=== PATIENT | male | born 1960 | race Two or more races ===

== ENCOUNTER → 2016-12-18 | Outpatient (CLI) | payer OTHER | END | disposition home or self-care (01) | LOC: CFH 09:40 | PROVIDERS: ATTEND Family Medicine | DX: M25.511 Pain in right shoulder (principal); G89.29 Other chronic pain ==

== ENCOUNTER 2020-07-29 22:31 | Emergency (ER) | payer MEDICARE, OTHER ==
[~2020-07-29] VITALS: Ht 170.2 cm; Wt 120.0 kg
--- NOTE | 2020-07-29 23:03 | NUR ---
patient objectively acts anxious. states he has checked his bp 20 times today and read on google that anything above 140 is very bad. MD at bedside now educating patient about this. in NAD. VS remain stable on RA. will continue to monitor. states CP comes and goes but is now staying constant.
[2020-07-29] MEDS ORDERED: LISI-167 PO (23:05)
[2020-07-29] MEDS ORDERED: GABA-826 PO (23:05)
[2020-07-29 23:55] LABS: BASOPHILS % (AUTO) 0 % (0-1); EOSINOPHILS % (AUTO) 0 % (1-7); LYMPHOCYTES % (AUTO) 23 % (22-44); MEAN CORPUSCULAR HEMOGLOBIN 31.9 pg (27.5-34.5); MEAN CORPUSCULAR HGB CONC 34.3 g/dL (33.2-36.2); MEAN PLATELET VOLUME 9.1 fL (7.4-10.4); MONOCYTES % (AUTO) 10 % (2-9); NEUTROPHILS % (AUTO) 66 % (42-75); PLATELET COUNT 131 x10^3/uL (130-400); RED CELL DISTRIBUTION WIDTH 13.1 % (9.4-14.8)
--- NOTE | 2020-07-29 23:55 | NUR ---
resting in bed in NAD. denies CP at this time. call jacob in reach
[2020-07-29 23:56] LABS: MD NO
[2020-07-30 00:02] LABS: ANION GAP 6 mmol/L (5-15); CALCIUM 8.4 mg/dL (8.5-10.1); CHLORIDE 102 mmol/L (98-107); CREATININE 0.61 mg/dL (0.7-1.3)
[2020-07-30 00:06] LABS: TROPONIN I < 0.015 ng/mL (0.000-0.045)
[2020-07-30 00:48] VITALS: BP 114/75
--- NOTE | 2020-07-30 00:48 | NUR ---
discharge instructions reviewed with patient. no further questions at this time. no IV placed during this ER visit. all personal belongings with patient on dc. steady gait to lobby. denies CP at this time. VS remain stable
== END 2020-07-30 00:50 | disposition home or self-care (01) ==
LOC: ED 23:37
DX: R07.89 Other chest pain (principal); I10 Essential (primary) hypertension
CPT/HCPCS: 36415; 80048; 84484; 85025; 93005; 99284